=== PATIENT | female | born 2000 ===

== ENCOUNTER 2019-08-28 12:43 | Outpatient (CLI) | payer OTHER ==
[2019-08-28 15:25] LABS: BASOPHILS % (AUTO) 0.6 %; EOSINOPHILS # (AUTO) 0.1 10^3/uL (0.0-0.7); HGB - HEMOGLOBIN 13.5 g/dL (12.0-16.0); LYMPHOCYTES # (AUTO) 1.4 10^3/uL (1.5-3.5); LYMPHOCYTES % (AUTO) 21.9 %; MEAN CORPUSCULAR HEMOGLOBIN 30.5 pg (27.0-31.0); MEAN CORPUSCULAR HGB CONC 33.3 g/dL (32.0-36.0); MEAN CORPUSCULAR VOLUME 91.4 fL (81.0-99.0); MEAN PLATELET VOLUME 10.3 fL (7.9-10.8); MONOCYTES # (AUTO) 0.4 10^3/uL (0.0-1.0); NEUTROPHILS # (AUTO) 4.4 10^3/uL (1.5-6.6); NEUTROPHILS % (AUTO) 70.2 %; PLT - PLATELET COUNT 301 10^3/uL (130-450); RED BLOOD COUNT 4.43 10^6/uL (4.20-5.40); RED CELL DISTRIBUTION WIDTH 12.7 % (12.0-15.0); WHITE BLOOD COUNT 6.3 x10^3/uL (4.8-10.8)
[2019-08-28 15:57] LABS: ALBUMIN 4.8 g/dL (3.2-5.5); ALBUMIN/GLOBULIN RATIO 1.6 (1.0-2.2); BILIRUBIN,TOTAL 1.3 mg/dL (0.2-1.0); CALCIUM 9.4 mg/dL (8.5-10.3); CREATININE 0.7 mg/dL (0.4-1.0); TOTAL PROTEIN 7.8 g/dL (6.7-8.2)
[2019-08-28 16:05] LABS: FREE T3 3.05 pg/mL (2.5-3.9)
[2019-08-28 16:06] LABS: THYROID STIMULATING HORMONE 0.96 uIU/mL (0.34-5.60)
[2019-08-28 16:07] LABS: FREE T4 (FREE THYROXINE) 0.93 ng/dL (0.58-1.64)
[2019-08-28 16:11] LABS: FERRITIN 13.1 ng/mL (11.0-306.8)
[2019-08-29 05:34] LABS: PROGESTERONE 0.9 ng/mL
[2019-08-29 10:14] LABS: HOMOCYSTEINE 9.4 umol/L (<10.4)
== END 2019-08-28 12:44 | disposition home or self-care (01) ==
LOC: LAB.S 12:43
PROVIDERS: ATTEND Naturopath
DX: E63.9 Nutritional deficiency, unspecified (principal); L70.9 Acne, unspecified; R42 Dizziness and giddiness; R53.83 Other fatigue
CPT/HCPCS: 36415; 80053; 81599; 82627; 82670; 82672; 82728; 83090; 83540; 84144; 84402; 84403; 84439; 84443; 84466; 84481; 84482; 85025; 86376